=== PATIENT | male | born 1995 | race Caucasian/White ===

== ENCOUNTER → 2020-10-24 | Outpatient (CLI) | payer OTHER ==
[~2020-10-24] MED LIST: IBU800 MG PO; ZESTRIL5 MG PO
== END ==
LOC: OPSV2 07:56
DX: Z01.812 Encounter for preprocedural laboratory examination (principal); S93.402A Sprain of unspecified ligament of left ankle, initial encounter; S86.312A Strain of muscle(s) and tendon(s) of peroneal muscle group at lower leg level, left leg, initial encounter; Z20.822 Contact with and (suspected) exposure to COVID-19

== ENCOUNTER 2020-11-01 08:50 | Day surgery (SDC) | payer OTHER ==
[~2020-11-01] VITALS: Ht 182.9 cm; Wt 113.4 kg
[~2020-11-01 08:50] MED LIST changes: -ZESTRIL5 MG PO
[2020-11-01] MEDS ORDERED: ZESTRIL5 MG PO (11:20)
== END 2020-11-01 21:25 | disposition home or self-care (01) ==
LOC: OR 08:50 → MED SURG 4 19:24 → OR 21:25
PROVIDERS: Podiatrist Foot & Ankle Surgery
PROC: 3E0T3BZ Introduction of Anesthetic Agent into Peripheral Nerves and Plexi, Percutaneous Approach (ICD-10-PCS; 2020-11-01)
PROC: 3E0T3BZ Introduction of Anesthetic Agent into Peripheral Nerves and Plexi, Percutaneous Approach (ICD-10-PCS; 2020-11-01)
PROC: 0SBG4ZZ Excision of Left Ankle Joint, Percutaneous Endoscopic Approach (ICD-10-PCS; principal; 2020-11-01 15:01)
PROC: 0LQW0ZZ Repair Left Foot Tendon, Open Approach (ICD-10-PCS; 2020-11-01 15:01)
PROC: 0QBM0ZZ Excision of Left Tarsal, Open Approach (ICD-10-PCS; 2020-11-01 15:01)
PROC: 0SGG04Z Fusion of Left Ankle Joint with Internal Fixation Device, Open Approach (ICD-10-PCS; 2020-11-01 15:01)
DX: S93.492A Sprain of other ligament of left ankle, initial encounter (principal); S93.412A Sprain of calcaneofibular ligament of left ankle, initial encounter; S96.812A Strain of other specified muscles and tendons at ankle and foot level, left foot, initial encounter; S98.01 Complete traumatic amputation of foot at ankle level; S91.012A Laceration without foreign body, left ankle, initial encounter; M25.472 Effusion, left ankle; M25.372 Other instability, left ankle; M24.072 Loose body in left ankle; I10 Essential (primary) hypertension; F17.200 Nicotine dependence, unspecified, uncomplicated; Z88.1 Allergy status to other antibiotic agents; Z79.899 Other long term (current) drug therapy; X58.XXXA Exposure to other specified factors, initial encounter
CPT/HCPCS: 73610; 76000; C1713; J0171; J0690; J1100; J1885; J2001; J2250; J2405; J2704; J2795; J3010; J3370; J7120; Q4133